=== PATIENT | female | born 1955 | race Caucasian/White ===

== ENCOUNTER 2017-09-21 07:29 | Outpatient (CLI) | payer OTHER | END 2017-09-21 08:00 | disposition home or self-care (01) | LOC: NUCLEAR 07:29 | DX: I10 Essential (primary) hypertension (principal); R07.89 Other chest pain ==

== ENCOUNTER 2017-09-24 07:37 | Outpatient (CLI) | payer OTHER | END 2017-09-24 07:42 | disposition home or self-care (01) | LOC: NUCLEAR 07:37 | DX: I10 Essential (primary) hypertension (principal) ==

== ENCOUNTER 2021-07-25 13:32 | Outpatient (CLI) | payer OTHER | END 2021-07-25 13:33 | disposition home or self-care (01) | LOC: NUCLEAR 13:32 | PROVIDERS: ATTEND Obstetrics & Gynecology | DX: M81.0 Age-related osteoporosis without current pathological fracture (principal) ==

== ENCOUNTER 2025-02-11 13:12 | Outpatient (CLI) | payer OTHER | END 2025-02-11 13:24 | disposition home or self-care (01) | LOC: MAMO-SONO 13:12 | PROVIDERS: ATTEND Obstetrics & Gynecology | DX: N60.11 Diffuse cystic mastopathy of right breast (principal); Z12.31 Encounter for screening mammogram for malignant neoplasm of breast ==